=== PATIENT | female | born 1965 | race Hispanic/Latino ===

== ENCOUNTER 2018-10-12 13:57 | Emergency (ER) | payer BC, OTHER ==
[2018-10-12] MEDS ORDERED: Ketorolac Tromethamine 60 MG/2 ML VIAL ONE (14:57)
--- NOTE | 2018-10-12 15:14 | RAD ---
THREE VIEWS LUMBOSACRAL SPINE: History: Low back pain, right leg pain. FINDINGS: Three views lumbosacral spine shows normal height and alignment of the vertebral bodies and intervert ebral discs without fracture or subluxation. Small osteophyts are seen in the midlumbar spine. Cholec ystectomy clips are seen. IMPRESSION: Mild degenerative changes of the lumbar spine without acute osseous abnormality. POS: [facility]
== END 2018-10-12 15:23 | disposition home or self-care (01) ==
LOC: NAV ERS 13:57
DX: M54.5 Low back pain (principal); E11.9 Type 2 diabetes mellitus without complications; Z79.4 Long term (current) use of insulin; Z79.899 Other long term (current) drug therapy
CPT/HCPCS: 72100; 96372; J1885

== ENCOUNTER 2024-08-06 20:12 | Emergency (ER) | payer BC ==
[2024-08-06] MEDS ORDERED: Lorazepam 2 MG/ML VIAL ONE (21:46)
[2024-08-06] MEDS ORDERED: fentaNYL 50 mcg/mL 1 mL Vial ONE (21:46)
[2024-08-06] MEDS ORDERED: Ketorolac Tromethamine 30 MG (1 mL) VIAL ONE (21:46)
== END 2024-08-06 22:30 | disposition home or self-care (01) ==
LOC: NAV ERS 20:12
DX: M54.12 Radiculopathy, cervical region (principal); E11.9 Type 2 diabetes mellitus without complications; Z79.84 Long term (current) use of oral hypoglycemic drugs; Z79.899 Other long term (current) drug therapy
CPT/HCPCS: 72125; 96374; 96375; J1885; J2060; J3010

== ENCOUNTER 2024-08-12 16:03 | Emergency (ER) | payer BC ==
[2024-08-12] MEDS ORDERED: fentaNYL 50 mcg/mL 1 mL Vial ONE (16:49)
[2024-08-12] MEDS ORDERED: Ondansetron PF 4 MG/2 ML Vial ONE (16:49)
[2024-08-12 17:28] LABS: #Basophils 0.1 thou/uL (0.0-0.2); #Eosinophils 0.2 thou/uL (0.0-0.7); #Monocytes 0.3 thou/uL (0.11-0.59); #Neutrophils 3.9 thou/uL (1.40-6.50); %Eosinophils 2.9 % (0.0-10.0); %Lymphocytes 30.8 % (21.0-51.0); %Monocytes 4.7 % (0.0-10.0); %Neutrophils 60.6 % (42.0-75.0); Hematocrit 36.5 % (36.0-47.0); Hemoglobin 12.9 g/dL (12.0-16.0); Mean Corpuscular HGB CONC 35.3 g/dL (32.0-36.0); Mean Corpuscular Volume 85.1 fl (78.0-98.0); Mean Platelet Volume 10.6 fL (7.4-10.4); Platelet Count 169 10x3/uL (130-400); RBC Distribution Width 11.3 % (11.5-14.5); Red Blood Cell (RBC) Count 4.29 mill/uL (4.20-5.40); White Blood Cell (WBC) Count 6.5 10x3/uL (4.8-10.8)
[2024-08-12] MEDS ORDERED: Ketorolac Tromethamine 30 MG (1 mL) VIAL ONE (17:29)
[2024-08-12 17:33] LABS: ALT (SGPT) 8 U/L (8-55); AST (SGOT) 10 U/L (5-34); Albumin 3.9 g/dL (3.5-5.0); Alkaline Phosphatase 201 U/L (40-110); Anion Gap 13 mmol/L (10-20); BUN (Urea Nitrogen) 10 mg/dL (9.8-20.1); Bilirubin, Total 0.3 mg/dL (0.2-1.2); Calc. Creatinine Clearance 0 mL/min (70-130); Calcium 9.5 mg/dL (7.8-10.44); Carbon Dioxide 24 mmol/L (22-29); Chloride 104 mmol/L (98-107); Estimated GFR 85; Globulin 3.2 g/dL (2.4-3.5); Glucose 298 mg/dL (70-105); Potassium 3.9 mmol/L (3.5-5.1); Protein, Total 7.1 g/dL (6.0-8.3); Sodium 137 mmol/L (136-145)
== END 2024-08-12 18:40 | disposition home or self-care (01) ==
LOC: NAV ERS 16:03
DX: M54.12 Radiculopathy, cervical region (principal); E11.9 Type 2 diabetes mellitus without complications; I10 Essential (primary) hypertension; E78.00 Pure hypercholesterolemia, unspecified; Z79.899 Other long term (current) drug therapy; Z79.85 Long-term (current) use of injectable non-insulin antidiabetic drugs
CPT/HCPCS: 80053; 85025; 96374; 96375; J1885; J2405; J3010

== ENCOUNTER 2025-07-04 15:40 | Emergency (ER) | payer OTHER | END 2025-07-04 17:00 | disposition home or self-care (01) | LOC: NAV ERS 15:40 | DX: M17.12 Unilateral primary osteoarthritis, left knee (principal); E11.9 Type 2 diabetes mellitus without complications; I10 Essential (primary) hypertension; E78.00 Pure hypercholesterolemia, unspecified; Z79.84 Long term (current) use of oral hypoglycemic drugs; Z79.899 Other long term (current) drug therapy | CPT/HCPCS: 99283 ==

== ENCOUNTER 2025-07-17 14:41 | Emergency (ER) | payer OTHER ==
[2025-07-17] MEDS ORDERED: Bacitracin 1 PK ONE (15:36)
[2025-07-17] MEDS ORDERED: Acetaminophen 325 MG TAB ONE (15:36)
[2025-07-17] MEDS ORDERED: Boostrix 0.5 ML (Tdap) VIAL (>/=7 yrs of age) ONE (15:37)
== END 2025-07-17 16:35 | disposition home or self-care (01) ==
LOC: NAV ERS 14:41
DX: S02.2XXA Fracture of nasal bones, initial encounter for closed fracture (principal); E11.9 Type 2 diabetes mellitus without complications; G20.A1 Parkinson's disease without dyskinesia, without mention of fluctuations; R26.89 Other abnormalities of gait and mobility; I10 Essential (primary) hypertension; E78.00 Pure hypercholesterolemia, unspecified; Z79.899 Other long term (current) drug therapy; W19.XXXA Unspecified fall, initial encounter
CPT/HCPCS: 36416; 70450; 70486; 72125; 90471; 90715; 96374; J1815